=== PATIENT | female | born 1930 | race Caucasian/White ===

== ENCOUNTER 2016-12-18 16:45 | Emergency (ER) | payer MEDICARE ==
[~2016-12-18] VITALS: Ht 154.9 cm; Wt 80.8 kg
[~2016-12-18 16:45] MED LIST: AMLO5TAB96; ATOR10; CLON.1; TOPR25TA2
[2016-12-18 17:13] VITALS: BP 150/67; PULSE 62; RESP 18; TEMP 98; O2SAT 92
[2016-12-18] MEDS ORDERED: CLON0.2T PO (17:36)
[2016-12-18] MEDS ORDERED: NORV2.5T PO (17:36)
[2016-12-18] MEDS ORDERED: HYDR25TA5 PO (17:36)
[2016-12-18] MEDS ORDERED: METO25TA3 PO (17:36)
[2016-12-18] MEDS ORDERED: ACETAMINOPHEN 325 MG TAB PO ONE (18:30)
--- NOTE | 2016-12-18 19:53 | RADRPT ---
EXAM DATE/TIME: 12/18/2016 19:10 [facility] COMPARISON: No previous studies available for comparison. INDICATIONS : Right knee pain, swelling, and bruising after falling today. MEDICAL HISTORY : None. SURGICAL HISTORY : ORIF right ankle. ENCOUNTER: Initial ACUITY: 1 day PAIN SCORE: 5/10 LOCATION: Right anterior knee. FINDINGS: Four view examination of the right knee demonstrates no evidence of fracture or dislocation. Bony mi neralization is normal. The articular surfaces are intact. Soft tissue swelling medially. CONCLUSION: 1. No acute fracture. Soft tissue swelling medially. Alexandr Collins MD on December 18, 2016 at 19:51 Board Certified Radiologist. This report was verified electronically.
--- NOTE | 2016-12-18 19:53 | RADRPT ---
EXAM DATE/TIME: 12/18/2016 19:10 [facility] COMPARISON: No previous studies available for comparison. INDICATIONS : Right knee pain, swelling, and bruising after falling today. MEDICAL HISTORY : None. SURGICAL HISTORY : ORIF right ankle. ENCOUNTER: Initial ACUITY: 1 day PAIN SCORE: 5/10 LOCATION: Right anterior knee. FINDINGS: Plate and screw fixation distal fibula. Screw fixation medial malleolus. Ankle mortise intact. CONCLUSION: 1. No acute fracture identified. Previous screw fixation distal tibia and fibula. Alexandr Collins MD on December 18, 2016 at 19:50 Board Certified Radiologist. This report was verified electronically.
--- NOTE | 2016-12-18 20:34 | PD ---
HPI Chief Complaint: Musculoskeletal Complaint Time Seen by Provider: 18:07 Travel History International Travel<30 days: No Contact w/Intl Traveler<30days: No Traveled to known affect area: No History of Present Illness HPI Patient is an 86-year-old female who comes in after she fell onto her knee. She says she tripped over an electric cord and landed right on her knee. She complains of pain to the right knee. She denies any other injury. She says she was able to get up and walk afterwards, but is continuing to hurt her. She is taking Tylenol at home and says this helped. She denies hitting her head or any loss of consciousness. PFSH Past Medical History Cancer: Yes (BREAST) Cardiovascular Problems: Yes High Cholesterol: Yes Genitourinary: Yes (PROBLEMS INSERTING MENDOZA) Hypertension: Yes Musculoskeletal: No Neurologic: No Respiratory: No Immunizations Current: Yes ?: Not Menopausal: Yes Past Surgical History Abdominal Surgery: Yes Appendectomy: Yes Hysterectomy: Yes Tonsillectomy: Yes Other Surgery: Yes (LUMPECTOMY) Social History Alcohol Use: No Tobacco Use: No Substance Use: No Allergies-Medications (Allergen,Severity, Reaction): Coded Allergies: No Known Allergies (Verified , 12/18/16) Reported Meds & Prescriptions Reported Meds & Active Scripts Active Reported Hydrochlorothiazide 25 Mg Tab 25 Mg PO DAILY Metoprolol Tartrate 25 Mg Tab 25 Mg PO DAILY Norvasc (Amlodipine Besylate) 2.5 Mg Tab 2.5 Mg PO DAILY Clonidine (Clonidine HCl) 0.2 Mg Tab 0.2 Mg PO BID Review of Systems General / Constitutional: No: Fever, Chills HENT: No: Headaches, Lightheadedness Cardiovascular: No: Chest Pain or Discomfort Respiratory: No: Shortness of Breath Gastrointestinal: No: Nausea, Vomiting Genitourinary: No: Dysuria Musculoskeletal: Positive: Edema, Pain Skin: No Rash, No Change in Pigmentation Neurologic: No: Weakness, Dizziness Physical Exam Narrative GENERAL: Awake and alert, in no acute distress. SKIN: Focused skin assessment warm/dry. HEAD: Atraumatic. Normocephalic. EYES: Pupils equal and round. No scleral icterus. ENT: Mucous membranes pink and moist. CARDIOVASCULAR: Regular rate and rhythm. No murmur appreciated. RESPIRATORY: No accessory muscle use. Clear to auscultation. Breath sounds equal bilaterally. MUSCULOSKELETAL: No obvious deformities. No clubbing. No cyanosis. Swelling and ecchymosis of the right knee. Tender to palpation of the medial side as well as the patella. There is no tenderness to the hips, the ankle or foot. Pedal pulses intact. NEUROLOGICAL: Awake and alert. No obvious cranial nerve deficits. Motor grossly within normal limits. Normal speech. Data Data Last Documented VS Vital Signs Date Time Temp Pulse Resp B/P (MAP) Pulse Ox O2 Delivery O2 Flow Rate FiO2 12/18/16 17:13 98.0 62 18 150/67 (94) 92 Orders Orders Knee, Complete (4vws) (12/18/16 ) Tibia/Fibula (Ap/Lat) (12/18/16 ) Acetaminophen (Tylenol) (12/18/16 18:30) Kody Bandage (12/18/16 20:28) MDM Medical Decision Making Medical Screen Exam Complete: Yes Emergency Medical Condition: Yes Differential Diagnosis Patellar fracture versus tib-fib fracture versus sprain Narrative Course Patient is a 86-year-old female comes in complaining of pain and swelling after she fell onto her right knee. Exam shows tenderness to the patella as well as medial side of the knee. She is able to fully extend and flex the knee. X-ray of the knee as well as the right tib-fib show no acute abnormalities. Patient given an Kody wrap. She does not want anything other than Tylenol. She is advised follow-up with her doctor. Advised to return to the ED as needed for any worsening symptoms. Diagnosis Primary Impression: Knee sprain Qualified Codes: S83.91XA - Sprain of unspecified site of right knee, initial encounter Referrals: Stefan Luna MD call for appointment Patient Instructions: General Instructions, Knee Sprain (ED) Additional Instructions: Follow-up with orthopedics. Take Tylenol as needed for pain. Return to the ED as needed for any worsening symptoms. Disposition: 01 DISCHARGE HOME Condition: Stable Jeannie Mills MD Dec 18, 2016 20:34
== END 2016-12-18 20:50 | disposition home or self-care (01) ==
LOC: PHEFT 16:45
DX: S83.91XA Sprain of unspecified site of right knee, initial encounter (principal); I10 Essential (primary) hypertension; W18.09XA Striking against other object with subsequent fall, initial encounter; Y93.01 Activity, walking, marching and hiking; Y92.009 Unspecified place in unspecified non-institutional (private) residence as the place of occurrence of the external cause; Y99.8 Other external cause status
CPT/HCPCS: 73564; 73590; 99283

== ENCOUNTER 2017-08-20 14:59 | Emergency (ER) | payer MEDICARE | END 2017-08-20 16:47 | disposition home or self-care (01) | LOC: PHEFT 14:59 | DX: L03.115 Cellulitis of right lower limb (principal); E78.00 Pure hypercholesterolemia, unspecified; J44.9 Chronic obstructive pulmonary disease, unspecified; I10 Essential (primary) hypertension; Z85.3 Personal history of malignant neoplasm of breast; Z88.8 Allergy status to other drugs, medicaments and biological substances; Z79.899 Other long term (current) drug therapy | CPT/HCPCS: 73564; 99283 ==